=== PATIENT | female | born 1965 | race Caucasian/White ===

== ENCOUNTER → 2018-10-10 12:06 | Outpatient (CLI) | payer BC | END | disposition home or self-care (01) | LOC: D.HCCARDIO 12:06 | PROVIDERS: ATTEND Internal Medicine Cardiovascular Disease | DX: I20.9 Angina pectoris, unspecified (principal) ==

== ENCOUNTER → 2018-10-17 10:03 | Outpatient (CLI) | payer BC ==
[~2018-10-17 10:03] MED LIST: BAYER CHEWABLE81 MG PO; LIPITOR10 MG PO; NITROQUICK0.4 MG SL; PREDNISONE20 MG PO; TOPROL XL25 MG PO; XANAX0.5 MG PO; ZOLOFT50 MG PO
[2018-11-02 07:07] VITALS: BMI 35.0
== END | disposition home or self-care (01) ==
LOC: D.HCCARDIO 10:03
PROVIDERS: ATTEND Internal Medicine Cardiovascular Disease
DX: I20.9 Angina pectoris, unspecified (principal)

== ENCOUNTER 2018-11-02 06:25 | Outpatient (CLI) | payer BC ==
[~2018-11-02] VITALS: Ht 165.1 cm; Wt 95.5 kg
--- NOTE | ~2018-11-02 | HEMODYNAMI ---
PATIENT:BRIDGET PARDO MEDICAL RECORD: [id number] : 67 LOCATION:[facility] ADMISSION DATE: 11/02/18 Generatedon:11/02/20188:57 Patient name: BRIDGET PARDO Patient #: [id number] SSN: : 1965 Date of study: 11/02/2018 Page: Of Hemodynamic Procedure Report Patient Data Patient Demographics Procedure consent was obtained First Name: BRIDGET Gender: Female Last Name: CHAR : 1965 Middle Initial: DENZEL Age: 53 year(s) Patient #: [id number] Race: Unknown Additional ID: [id number] Contact details [address]: [address] [place] [address] State: [place] City: [place] Zip code: [address] Admission Admission Data Admission Date: 11/02/2018 Admission Time: 6:25 Procedure Procedure Types Cath Procedure Diagnostic Procedure LHC LHC w/Coronaries Procedure Description Procedure Date Procedure Date: 11/02/2018 Procedure Start Time: 8:38 Procedure End Time: 8:52 Procedure Staff Name Function Moi Lenz MD Performing Physician Vilma Nichols RT Monitor Clementina Rubi RT Scrub Nathaniel Camacho RN Nurse Procedure Data Cath Procedure Fluoroscopy Diagnostic fluoroscopy Total fluoroscopy Time: 3.8 time: 3.8 min min Diagnostic fluoroscopy Total fluoroscopy dose: 774 dose: 774 mGy mGy Contrast Material Contrast Material Type Amount (ml) Isovue 300 53 Entry Location Entry Primary Successful Side Size Upsize Upsize Entry Closure Knowles ccessful Closure Location (Fr) 1 (Fr) 2 (Fr) Remarks Device Remarks Radial Right 6 Fr Mechanical artery Short Compression Estimated blood loss: 5 ml Diagnostic catheters Device Type Used For End Catheter Placement DIAGNOSTIC Newell 110cm 5 Multi-vessel Fr catheter ([id number]) Angiography DIAGNOSTIC Sb 110cm Left Coronary 5Fr catheter ([id number]) Angiography Procedure Complications No complications Procedure Medications Medication Administration Route Dosage 0.9% NaCl I.V. 100 ml/hr Oxygen etCO2 Nasal cannula 2 l/min Heparin Flush Bag added to field 2 bags (1000units/500ml NS) Radial Cocktail added to field 1 syringe (Verapomil 2mg/Nitro 400mcg/Heparin 1500units) Lidocaine 2% added to field 20 Versed I.V. 2 mg Fentanyl I.V. 100 mcg Radial Cocktail I.A. 1 syringe (Verapomil 2mg/Nitro 400mcg/Heparin 1500units) Versed I.V. 0.5 mg Hemodynamics Rest Heart Rate: 66 (bpm) Pressure Samples Time Site Value (mmHg) Purpose Heart Use Rate(bpm) 8:41 LV 131/1,16 Snapshot 81 8:42 AO 109/71(87) Pullback 80 8:42 LV 119/-1,8 Pullback 80 Gradients Valve Time Site 1 Site 2 Mean SEP/DFP Peak To Heart Use (mmHg) (sec/min) Peak Rate (mmHg) (bpm) Aortic 8:42 LV AO 7 15 10 80 119/-1,8 109/71(87) Calculations Valve P-P Mean Valve Index Valve Source Name Gradient Area Flow (cm2) Aortic 10 7 10 7 Snapshots Pre Cath Intra NCS Post Cath Vital Signs Time Heart Resp SPO2 etCO2 NIBP (mmHg) Rhythm Pain Sedation Rate (ipm) (%) (mmHg) Status Level (bpm) 8:23:22 58 19 100 135/71(116) NSR 0 (11) 10(A) , No pain 8:28:30 63 13 100 41.6 146/78(100) NSR 0 (11) 10(A) , No pain 8:32:43 64 12 98 40.1 123/81(100) NSR 0 (11) 10(A) , No pain 8:36:51 66 10 95 40.9 124/71(100) NSR 0 (11) 10(A) , No pain 8:40:57 75 11 100 48.3 118/79(96) NSR 0 (11) 10(A) , No pain 8:45:05 82 12 95 43.8 113/68(94) NSR 0 (11) 9(A) , No pain 8:49:11 79 12 97 44.5 126/70(94) NSR 0 (11) 9(A) , No pain Medications Time Medication Route Dose Verified Delivered Reason Notes Effectiveness by by 8:21:43 0.9% NaCl I.V. 100 Nathaniel Nathaniel Per ml/hr Doug Camacho physician RN RN 8:21:52 Oxygen etCO2 2 l/min Nathaniel Nathaniel for low 02 Nasal Lorgary Camacho sats cannula RN RN 8:22:06 Heparin Flush added 2 bags Nathaniel Nathaniel used for Bag to Doug Camacho procedure (1000units/500ml field RN RN NS) 8:22:19 Radial Cocktail added 1 Nathaniel Nathaniel used for (Verapomil to syringe Lorigan Doug procedure 2mg/Nitro field RN RN 400mcg/Heparin 1500units) 8:23:07 Lidocaine 2% added 20ml Nathaniel Nathaniel for local to vial Lorigan Rebaigan anesthetic field RN RN 8:33:22 Versed I.V. 2 mg Nathaniel Nathaniel for sedation Doug Camacho RN RN 8:33:32 Fentanyl I.V. 100 mcg Nathaniel Nathaniel for sedation Doug Camacho RN RN 8:40:05 Radial Cocktail I.A. 1 Nathaniel Moi for (Verapomil syringe Doug Lenz MD vasodilation 2mg/Nitro RN 400mcg/Heparin 1500units) 8:41:07 Versed I.V. 0.5 mg Nathaniel Nathaniel for sedation Doug Camacho RN heater engineer helper Log Time Note 8:00:33 Natahniel Camacho RN sent for patient. Start room use. 8:19:49 Diagnostic Cath Status : Elective 8:20:34 Time tracking: Regular hours (M-F 7:00 - 5:00) 8:20:38 Plan of Care:Hemodynamics will remain stable., Cardiac rhythm will remain stable., Comfort level will be maintained., Respiratory function will remain adequate., Patient/ family verbilizes understanding of procedure., Procedure tolerated without complication., Recovers from procedure without complications.. 8:21:13 Patient received from Pre/Post Procedure Room to [facility] Alert and oriented. Tansferred to table in Supine position. 8:21:14 Warm blankets applied, and jamar hugger turned on for patient comfort. 8:21:14 Correct patient and procedure confirmed by team. 8:21:18 Signed procedure consent form obtained from patient. 8:21:19 ECG and BP/O2 sat monitors applied to patient. 8:21:43 0.9% NaCl 100 ml/hr I.V. was administered by Nathaniel Camacho RN; Per physician; 8:21:52 Oxygen 2 l/min etCO2 Nasal cannula was administered by Nathaniel Camacho RN; for low 02 sats; 8:22:06 Heparin Flush Bag (1000units/500ml NS) 2 bags added to field was administered by Nathaniel Camacho RN; used for procedure; 8:22:08 Vital chart was started 8:22:19 Radial Cocktail (Verapomil 2mg/Nitro 400mcg/Heparin 1500units) 1 syringe added to field was administered by Nathaniel Camacho RN; used for procedure; 8:23:07 Lidocaine 2% 20ml vial added to field was administered by Nathaniel Camacho RN; for local anesthetic; 8:31:28 Baseline sample Acquired. 8:31:42 Rhythm: sinus rhythm 8:31:44 Full Disclosure recording started 8:31:48 H&P Date Dictated: 11/02/2018 Within 30 days and on chart., H&P Addendum completed by physician on day of procedure. (MUST COMPLETE FOR ALL OUTPATIENTS). 8:31:50 Pre-procedure instructions explained to patient. 8:31:50 Pre-op teaching completed and patient verbalized understanding. 8:31:52 Family in patients room. 8:31:53 Patient NPO since Midnight. 8:31:55 Is the patient allergic to Iodine/contrast media? No. 8:31:57 Was the patient premedicated? No 8:32:00 Is patient on blood thinner?No 8:32:01 Patient diabetic? Yes. 8:32:02 If diabetic: On Metformin? No 8:32:06 Previous problem with sedation/anesthesia? No ? 8:32:11 Snore? Yes 8:32:12 Sleep apnea? No 8:32:13 Deviated septum? No 8:32:13 Opens mouth fully? Yes 8:32:14 Sticks out tongue? Yes 8:32:16 Airway obstruction? No ? 8:32:18 Dentures? No ? 8:32:21 Pre procedure: right dorsailis pedis pulse 2+ Normal; easily identifiable; not easily obliterated 8:32:23 Pre procedure: left dorsailis pedis pulse 2+ Normal; easily identifiable; not easily obliterated 8:32:25 Patient pain scale 0/10 ?. 8:32:30 IV patent on arrival in left forearm with 0.9% NaCl at KVO. 8:32:33 Lab results completed and on chart. 8:32:41 Right Radial & Right Groin area was prepped with chlora-prep and draped in sterile fashion 8:32:42 Alarms reviewed by R. N. 8:32:42 Sharps counted by scrub and verified by R.N. 8:32:45 Physician arrived 8:32:45 --------ALL STOP TIME OUT------ 8:32:46 Final Timeout: patient, procedure, and site verified with staff and physician. All members of the team are in agreement. 8:32:48 Right Radial & Right Groin site verified by team. 8:32:53 Maximum allowable Isovue 370 dose 300ml. Physician notified. (300ml for normal creatinines. For patients with creatinine of 1.7 or higher multiply weight(kg) x 5 divided by creatinine.) 8:32:56 Fire Safety Assessment: A--An alcohol-based skin anteseptic being used preoperatively., C--Open oxygen or nitrous oxide is being used., D--An ESU, laser, or fiber-optic light is being used. 8:33:00 Physical assessment completed. ASA score P 2 - A patient with mild systemic disease as per Moi Lenz MD. 8:33:03 Sedation plan: IV Moderate Sedation Medication:Versed, Fentanyl 8:33:22 Versed 2 mg I.V. was administered by Nathaniel Camacho RN; for sedation; 8:33:24 Use device set Radial Dx or PCI 8:33:25 ACIST Syringe (72901) opened to sterile field. 8:33:25 Medline Cath Pack ([id number]) opened to sterile field. 8:33:25 Bag Decanter () opened to sterile field. 8:33:26 DIAGNOSTIC WIRE .035 260cm J wire (019125) opened to sterile field. 8:33:26 ACIST Hand Control (85571) opened to sterile field. 8:33:27 ACIST Manifold (22232) opened to sterile field. 8:33:27 Tegaderm 4 x 4 (1626W) opened to sterile field. 8:33:28 MBrace Wrist Support ([id number]) opened to sterile field. 8:33:29 SHEATH 6FR Slender (80-4929) opened to sterile field. 8:33:30 NEEDLE Cook 21G 4cm Radial (F41704) opened to sterile field. 8:33:32 Fentanyl 100 mcg I.V. was administered by Nathaniel Camacho RN; for sedation; 8:34:24 Zero performed for pressure channel P1 8:38:44 Procedure started. 8:38:51 Local anesthetic to right radial artery with Lidocaine 2% by Moi Lenz MD.INITIAL ACCESS ONLY 8:39:01 A 6 Fr Short sheath was inserted into the Right Radial artery 8:40:05 Radial Cocktail (Verapomil 2mg/Nitro 400mcg/Heparin 1500units) 1 syringe I.A. was administered by Moi Lenz MD; for vasodilation; 8:40:50 A DIAGNOSTIC Newell 110cm 5 Fr catheter (763956) was advanced over the wire and used for Multi-vessel Angiography. 8:41:07 Versed 0.5 mg I.V. was administered by Nathaniel Camacho RN; for sedation; 8:41:45 LV hemodynamics recorded. 8:41:47 LV gram done using MEDEROS 8:41:50 Injector settings: Ml/sec: 5, Volume: 15, 8:41:59 EF : 55 % 8:42:56 RCA angiography performed. 8:42:58 Injector settings: Ml/sec: 3, Volume: 6, 8:44:11 Catheter removed. 8:45:08 A DIAGNOSTIC Sb 110cm 5Fr catheter (172124) was advanced over the wire and used for Left Coronary Angiography. 8:46:57 Catheter removed. unable to cannulate vessel. 8:47:53 GUIDE 5FR EBU 3.5 catheter ([id number]) opened to sterile field. 8:48:07 5 Fr ebu 3.5 guide catheter was inserted over the wire 8:49:22 LCA angiography performed. 8:49:25 Injector settings: Ml/sec: 3, Volume: 6, 8:50:08 Catheter removed. 8:50:13 TR BAND Standard ([id number]) opened to sterile field. 8:50:33 Sheath removed intact; hemostasis achieved with Mechanical Compression to the Right Radial artery. 8:50:36 Procedure ended.(Physican Out) 8:50:54 Fluoroscopy time 03.80 minutes. 8:50:59 Flurop Dose total: 774 8:50:59 Fluoroscopy dose: 774 mGy 8:51:08 Contrast amount:Isovue 300 53ml. 8:51:09 Sharps counted by scrub and verified by R.N. 8:51:11 TR band inflated with 10cc of air. 8:51:13 Insertion/operative site no bleeding no hematoma. 8:51:16 Post right radial artery:stable 8:51:18 Post Procedure Pulses reassessed and unchanged 8:51:20 Post procedure rhythm: unchanged. 8:51:23 Estimated blood loss: 5 ml 8:51:25 Post procedure instruction explained to patient.Patient verbalizes understanding. 8:51:25 Patient needs reinforcement of post procedure teaching. 8:51:30 Procedure and supply charges have been captured, reviewed, submitted and are correct. 8:51:34 Procedure Complication : No complications 8:51:47 Vital chart was stopped 8:51:57 See physician's report for complete and final results. 8:52:00 Report given to Pre/Post Procedure Room. 8:52:03 Patient transfered to Pre/Post Procedure Room with Stretcher. 8:52:07 Procedure ended. 8:52:07 Full Disclosure recording stopped 8:52:11 End room use (Document Last) Device Usage Item Name Manufacture Quantity Catalog Hospital Part Current Minimal Lot# / Number Charge Number Stock Stock Serial# Code ACIST Acist 1 52921 404235 916463 630145 20 Syringe Medical (46576) Systems Inc Medline Medline 1 [id number] 410776 81167 776198 5 Cath Pack ([id number]) Bag Microtek 1 2001S 895258 31041 300431 5 Decanter Medical Inc. () DIAGNOSTIC [facility] [place] 1 468632 443350 019544 560614 30 WIRE .035 260cm J wire (884657) ACIST Hand Acist 1 58441 503611 274574 224682 5 Control Medical (26545) Systems Inc ACIST Acist 1 45446 313532 850757 412498 5 Manifold Medical (33530) Systems Inc Tegaderm 4 3M 1 1626W 612524 129429 958104 5 x 4 (1626W) MBrace Advanced 1 140-0250-00 451291 30549 978160 5 Wrist Vascular Support Dynamics ([id number]) SHEATH 6FR Terumo 1 [id number] 714553 440246 623062 5 Slender (80-1060) NEEDLE Cook [facility] 1 [id number] 083516 582724 728804 5 21G 4cm Radial ([id number]) DIAGNOSTIC Terumo 1 40-5013 774063 295159 032615 5 Newell 110cm 5 Fr catheter (289683) DIAGNOSTIC Terumo 1 40-5023 544036 362573 682608 5 Sb 110cm 5Fr catheter (875751) GUIDE 5FR Medtronic 1 [id number] 142829 684953 415489 1 EBU 3.5 catheter ([id number]) TR BAND Terumo 1 [id number] 175814 344748 514718 40 Standard ([id number]) Signature Audit [place] Stage Time Signature Unsigned Intra-Procedure 11/02/2018 Vilma Nichols 8:57:50 AM RT(R) Signatures Monitor : Vilma Nichols RT Signature : Date : Time : [place] [address] [place] [address]
[2018-11-02] MEDS ORDERED: ZOLOFT50 MG PO (06:51)
[2018-11-02] MEDS ORDERED: LIPITOR10 MG PO (06:52)
[2018-11-02] MEDS ORDERED: PREDNISONE20 MG PO (06:52)
[2018-11-02] MEDS ORDERED: XANAX0.5 MG PO (06:53)
[2018-11-02] MEDS ORDERED: TOPROL XL25 MG PO (06:53)
[2018-11-02] MEDS ORDERED: NITROQUICK0.4 MG SL (06:54)
[2018-11-02] MEDS ORDERED: BAYER CHEWABLE81 MG PO (06:54)
[2018-11-02 07:07] VITALS: BP 115/69; Ht 165.1 cm; Wt 95.5 kg
[2018-11-02 07:12] LABS: BASOPHILS 0.3 % (0-2); EOSINOPHILS 2.3 % (0-7); HEMATOCRIT 44.3 % (36.0-48.0); HEMOGLOBIN 15.5 g/dL (12-16); IMMATURE GRANULOCYTES 0.2 % (0-5); LYMPHOCYTES 38.9 % (15-50); MCH 31.4 pg (26.0-34.0); MCV 89.9 fL (80.0-100.0); MEAN PLATELET VOLUME 9.2 fL (7.4-10.4); NEUTROPHILS 51.3 % (40-80); PLATELET COUNT 197 10x3/uL (130-400); RBC 4.93 10x6/uL (4.00-5.40); RDW 12.7 % (11.5-14.5); WBC 6.5 10x3/uL (4.8-10.8)
[2018-11-02 07:22] LABS: CALC OSMOLALITY 287 mosm/kg (275-300); CALCIUM 8.8 mg/dL (8.5-10.1); CARBON DIOXIDE 26.4 mmol/L (21.0-32.0); CHLORIDE - SERUM 106 mmol/L (98-107); CREATININE - SERUM 0.8 mg/dL (0.6-1.3); GLUCOSE 132 mg/dL (74-106); POTASSIUM - SERUM 3.6 mmol/L (3.5-5.1); SODIUM 142 mmol/L (136-145); UREA NITROGEN 21 mg/dL (7-18); eGFR NON AFRICAN AMERICAN 80 mL/min (90-120)
--- NOTE | 2018-11-02 09:04 | NUR ---
RECIEVED TO ROOM VIA STRETCHER FROM [employer] TENDER WITH TR BAND TO R/WRIST CDI NO BLEEDING OR HEMATOMA NOTED. DR RECIO AND FAMILY AT BEDSIDE PATIENT DENIED PAIN OR NEEDS HR 70 BP 127/73 CHEST PAIN IS DENIED
--- NOTE | 2018-11-02 09:14 | NUR ---
TR BAND IS INTACT TO R/WRIST PATIENT DENIED PAIN AT THIS TIME. INSTRUCTED PATIENT TO KEEP RUE STRAIGHT NO BENDING OR FLEXING OF WRIST
--- NOTE | 2018-11-02 09:27 | NUR ---
VSS AND CHEST PAIN IS DENIED. TR BAND REMAINS CDI TO R/WRIST FAMILY IS PRESENT AT BEDSIDE
--- NOTE | 2018-11-02 09:54 | NUR ---
RESTING QUIETLY WITH NO DISTRESS VSS AND TR BAND TO R/WRIST IS CDI. FAMILY IS PRESENT AT BEDSIDE
--- NOTE | 2018-11-02 10:25 | NUR ---
TR BAND REMAINS CDI WITH VSS. PATIENT CONTINUES TO REST WITH NO DISTRESS
--- NOTE | 2018-11-02 10:47 | NUR ---
2 CC AIR REMOVED FROM TR BAND WITH NO BLEEDING NOTED. REPOSITIONED TO SITTING WITH HOB UP 30 GUILLE COMFORT. SANDWICH AND SODA TO BEDSIDE
--- NOTE | 2018-11-02 10:55 | NUR ---
2 CC AIR REMOVED FROM TR BAND WITH NO BLEEDING NOTED.
--- NOTE | 2018-11-02 11:04 | NUR ---
2 CC AIR REMOVED FROM TR BAND WITH NO BLEEDING NOTED. VERBAL AND WRITTEN DISCHARGE GONE OVER WITH PATIENT AND FAMILY
--- NOTE | 2018-11-02 11:19 | NUR ---
2 CC AIR REMOVED FROM TR BAND WITH NO BLEEDING NOTED PIV REMOVED WITH DRESSING APPLIED. PATIENT UP TO GET DRESSED FOR DISCHARGE HOME
--- NOTE | 2018-11-02 11:29 | NUR ---
TR BAND REMOVED WITH DRESSING APPLIED. PATIENT DENIED PAIN OR NEEDS LEFT VIA WC TO PARKING FOR TRANSPORT HOME WITH FAMILY NO DISTRESS
== END 2018-11-02 11:30 | disposition home or self-care (01) ==
LOC: D.CATH 06:25
PROVIDERS: ATTEND Internal Medicine Cardiovascular Disease
DX: I20.9 Angina pectoris, unspecified (principal); Z01.812 Encounter for preprocedural laboratory examination